=== PATIENT | female | born 1970 | race Caucasian/White ===

== ENCOUNTER 2017-10-02 20:39 | Emergency (ER) | payer OTHER ==
[~2017-10-02] VITALS: Ht 160 cm; Wt 82.1 kg
[~2017-10-02 20:39] MED LIST: EPIPEN 2-P0.3 MG/0.3 IM
[2017-10-02] MEDS ORDERED: PAROXETINE HCL10 MG PO (21:06)
[2017-10-02] MEDS ORDERED: NAPROXEN500 MG PO (21:06)
[2017-10-02] MEDS ORDERED: OXYCODONE HCL5 MG PO (22:06)
[2017-10-04] MEDS ORDERED: NORCO 7.5-3251 EACH PO (16:29)
== END 2017-10-02 22:21 | disposition home or self-care (01) ==
LOC: ED 20:39
DX: S82.62XA Displaced fracture of lateral malleolus of left fibula, initial encounter for closed fracture (principal); Z90.710 Acquired absence of both cervix and uterus; Z90.89 Acquired absence of other organs; Z88.8 Allergy status to other drugs, medicaments and biological substances; Z91.018 Allergy to other foods; Z88.2 Allergy status to sulfonamides; Z88.5 Allergy status to narcotic agent; Z79.899 Other long term (current) drug therapy; W00.0XXA Fall on same level due to ice and snow, initial encounter
CPT/HCPCS: 73610; 99283

== ENCOUNTER 2017-10-10 05:50 | Day surgery (SDC) | payer OTHER ==
[~2017-10-10] VITALS: Ht 160 cm; Wt 82.1 kg
[~2017-10-10 05:50] MED LIST changes: +NAPROXEN500 MG PO; +NORCO 7.5-3251 EACH PO; +OXYCODONE HCL5 MG PO; +PAROXETINE HCL10 MG PO
[2017-10-10] MEDS ORDERED: HYDROCODON-ACE1 EA11 PO (07:54)
--- NOTE | 2017-10-10 08:24 | NUR ---
10/10/17 0824 Judy Bautista 0751 PT ARRIVED IN PACU SLEEPY WITH ORAL AIRWAY IN PLACE. 0752 AIRWAY REMOVED. REPORT FROM ANESTHESIA. 0824 SLEEPY WITH NO C/O'S.
--- NOTE | 2017-10-10 08:57 | NUR ---
PT IS BACK TO DS FROM PACU. PT IS ALSEEP, MOM IS AT THE BEDSIDE. SHE DOES NOT FEEL OR WAKE UP WHILE MYSELF AND SECOND RN PUT HER LEFT FOOT/ANKLE IN BOOT. CALL LIGHT IS WITHIN REACH. WATER AND CRACKERS ON BEDSIDE TABLE. NO OTHER C/O'S AT THIS TIME. WILL REASSESS WITHIN THE HOUR.
--- NOTE | 2017-10-10 09:13 | OR ---
[facility] [address], [place] [address] Signed DATE OF OPERATION: 10/10/2017 SURGEON: Kiara Bonner MD PREOPERATIVE DIAGNOSIS: Left lateral malleolus fracture displaced. POSTOPERATIVE DIAGNOSIS: Left lateral malleolus fracture displaced. PROCEDURE PERFORMED: Left ankle open reduction and internal fixation with IM renee. WELL DRILLER HELPER: KIERSTEN Retana. Enedelia was present in critical for positioning, retraction, and wound closure. ANESTHESIA: General with sciatic block. TOURNIQUET TIME: 26 minutes. IMPLANTS: Arthrex FibuLock 3 x 130 with two 2.7 screws. HISTORY: Bettye is a 46-year-old female who slipped on the ice suffering a fracture of her ankle with tear and instability of the deltoid ligament. Risks and benefits of the operative treatment were discussed with her and she elected to proceed. DESCRIPTION OF PROCEDURE: Once consent was obtained, she was taken to the operating room. After adequate anesthesia, she was placed on the operating table. All downside pressure points were well padded. PARQ conference was obtained and the leg was prepped and draped in standard sterile fashion. She was placed in the proximal leg tourniquet. The leg was exsanguinated using an Esmarch bandage. Tourniquet inflated to 250 mmHg after prepping and draping. The fibula was then identified on the image intensifier. The distal tip of the fibula was then approached through 1 cm incision. Two stab incisions were made at the fracture and a clamp was used to reduce and hold the fracture in position. The Electronically Signed By: KIARA BONNER MD 10/10/17 0913 PATIENT NAME: BETTYE BOWLING OPERATIVE REPORT DATE OF : 66 PHYSICIAN: KIARA BONNER MD REPORT #: [id number] REPORT IS CONFIDENTIAL AND NOT TO BE RELEASED WITHOUT AUTHORIZATION [facility] [address] [place] [id number] Signed initial guidewire was then introduced from the tip of the fibula into the shaft of the fibula. This was over-reamed using the 6 mm drill. This was then exchanged for a longer guidewire and the fibula was reamed to a depth of 140 using 3.2 mm reamer. The renee was then selected and placed in the fibula and advanced until it was well seated. The proximal arms were then deployed. Two distal locking screws, one lateral and one anterior were placed through the separate stab incisions. Excellent fixation was obtained. The introducer was then removed. Final radiograph showed an anatomic reduction and fixation. Screw lengths were appropriate. The wounds were copiously irrigated with antibiotic solution, closed with heather and dressed with Mepilex Ag dressing, gauze and Skip wrap. She tolerated the procedure well and was taken to the recovery room in satisfactory condition. All sponge, needle, and instrument counts were correct. Kiara Bonner MD BA/[place] /[id number] Electronically Signed By: KIARA BONNER MD 01/07/18 913 PATIENT NAME: BETTYE BOWLING OPERATIVE REPORT DATE OF : 66 PHYSICIAN: KIARA BONNER MD REPORT #: [id number] REPORT IS CONFIDENTIAL AND NOT TO BE RELEASED WITHOUT AUTHORIZATION
--- NOTE | 2017-10-10 09:52 | NUR ---
PT IS RESTING COMFORTABLY UPON ENTERING THE ROOM. SENIOR SQL SERVER DBA COMES IN TO CHECK STATUS OF PT'S SPINAL, SHE IS ABLE TO MOVE BOTH LEGS, FUNCTIONAL CONSULTANT HER RIGHT KNEE AND CAN FEEL WHEN YOU SQUEEZ HER TOES. THE BLOCK ON THE LEFT SIDE IS STILL WORKING AT THIS TIME. SHE REPORTS STILL BEING REALLY SLEEPY, GOING TO LET HER REST AT THIS TIME. WILL REASSESS WITHIN THE HOUR.
--- NOTE | 2017-10-10 10:50 | NUR ---
PT IS WAKING UP A LITTLE BIT. SHE REPORTS THAT SHE NEEDS TO PEE, SINCE SHE HAS SOME TINGLING IN THE BOTTOM OF HER LEFT FOOT IT IS RECOMMENDED THAT SHE USE A BEDPAN. SHE IS AGREEABLE TO THIS PLAN. AT FIRST BED EM IS NOT PLACED BACK FAR ENOUGH, A NEW NEREYDA IS GRABBED AND PLACED UNDER PT. SHE REPROTS SHE STILL NEEDS TO URINATE SO THE BED EM IS REAJUSTED AND 550ML IS COLLECTED. SHE IS DENYING ANY PAIN AND NAUSEA. SHE TOLERATES SIPS OF WATER, DENIES BEING HUNGRY. CALL LIGHT WITHIN REACH. WILL REASSESS WITHIN THE HOUR.
--- NOTE | 2017-10-10 11:53 | NUR ---
PT IS AWAKE, MOM IS AT THE BEDSIDE. MOM GAVE PT 2 TABS OF HER NOCRO 7.5/325MG THAT SHE PICKED UP FROM THE PHARMACY. PT REPORTS THAT HER LEFT FOOT IS WAKING UP AND SHE IS STARTING TO FEEL IT. SPINAL HAS RESOLVED COMPLETELY. CALL LIGHT WITHIN REACH. PT IS TOLERATING LIQUIDS AND FOOD. NO OTHER C/O'S AT THIS TIME. DC CRITERIA DISCUSSED WITH THE PT. WILL REASSESS WITHIN THE HOUR.
--- NOTE | 2017-10-10 12:51 | NUR ---
1230: PT IS ASSISTED UP OOB, USING CRUTCHES AND STANDBY ASSIST TO THE BATHROOM. UPON EXITING THE RESTROOM SHE REPORTS THAT SHE IS READY TO GO HOME. PT HAS MEET DISCHARGE CRITERIA AT THIS TIME. DC INSTRUCTIONS ARE GIVEN TO THE PT WITH HER MOM PRESENT. QUESTIONS ARE ASKED AND ANSWERED. PT IS EDUCATED ON HOW BEST TO DRESS HERSELF AND TO PUSH THE CALL LIGHT IF SHE NEEDS HELP.
== END 2017-10-10 12:40 | disposition home or self-care (01) ==
LOC: DS 05:50
PROVIDERS: Specialist
PROC: 0QSJ04Z Reposition Right Fibula with Internal Fixation Device, Open Approach (ICD-10-PCS; principal; 2017-10-10 06:45)
DX: S82.61XA Displaced fracture of lateral malleolus of right fibula, initial encounter for closed fracture (principal); M79.7 Fibromyalgia; Z88.5 Allergy status to narcotic agent; Z88.2 Allergy status to sulfonamides; Z98.890 Other specified postprocedural states; Z79.899 Other long term (current) drug therapy; W00.0XXA Fall on same level due to ice and snow, initial encounter; Y93.89 Activity, other specified
CPT/HCPCS: 01480; 64445; 73600; 76942; C1713; J0690; J0735; J1100; J1885; J2250; J2405; J2704; J2765; J3010; J7120

== ENCOUNTER 2018-03-26 12:06 | Observation (INO) | payer OTHER ==
[~2018-03-26] VITALS: Ht 160 cm; Wt 80.3 kg
[~2018-03-26 12:06] MED LIST changes: +HYDROCODON-ACE1 EA11 PO
--- NOTE | 2018-03-26 13:06 | NUR ---
PT HAS NOT ARRIVED TO MED/SURG BY THIS TIME. THIS RN CHECKED ROOMS AND SPANN. PT NOT FOUND. DAY SURGERY UNIT CALLED. THIS RN SPOKE WITH ASRAHY AND HAMIDA, RNS WHO STATE PT IS ON THEIR UNIT. SARAHY STATES OR CHARGE WILL BE CONSULTED AND MED/SURG WILL BE CALLED AND UPDATED.
--- NOTE | 2018-03-26 13:20 | NUR ---
PT ARRIVED FROM DAY SURGERY. INTAKE DONE. ASSESSMENT DONE. PT REPORTS 6/10 PAIN AND STATES "THIS IS TOTALLY FINE FOR ME. i DON'T NEED MEDICATION." PIV STARTED PER PROTOCOL. PT ORIENTED TO ROOM. LABS DRAWN. FLUIDS STARTED (SEE MAR). BED RAILS UP. CALL LIGHT WITHIN REACH.
--- NOTE | 2018-03-26 15:02 | NUR ---
MED REC COMPLETE
--- NOTE | 2018-03-26 15:23 | NUR ---
PRE OP CHECK LIST AND AFTERNOON ASSESSMENT DUE. THIS RN TO ROOM. PT PLAYING ON PHONE. ASSESSMENT DONE. PRE OP CHECK LIST COMPLETED. CONSENT SIGNED. PT REPORTS 6/10 PAIN THAT "IS JUST THE SAME." PT DOES NOT WANT PAIN MEDICATION AT THIS TIME. PT REMOVES MAKE UP AND JEWLERLY FOR PROCEEDURE. PT BACK TO BED. WARM BLANKETS PROVIDED. CALL LIGTH WITHIN REACH.
--- NOTE | 2018-03-26 16:17 | NUR ---
OR CHARGE CAME TO TAKE PT TO SURGERY. REPORT GIVEN TO ALL JUAREZ.
--- NOTE | 2018-03-26 17:58 | NUR ---
03/26/18 1758 Judy Batuista 1723 PT ARRIVED IN PACU SLEEPY WITH ORAL AND NASAL AIRWAY IN PLACE. 1727 PT SPIT ORAL AIRWAY OUT. CRYING OUT AND MIMICKING SEIZURE LIKE ACTIVITY. PILLOWS ALONG LEFT SIDE OF BODY FOR PT PROTECTION FROM SELF. 1745 ANESTHESIA AWARE OF PT CONDITION WITH NO NEW ORDERS. 1755 PT AWAKE AND C/O L ANKLE PAIN 10. 1757 FENTANYL 25MCG GIVEN IVP. ICE TO L ANKLE.
--- NOTE | 2018-03-26 18:11 | NUR ---
PT HERE FOR SEPTIC LEFT ANKLE. SURGERY TODAY FOR HARDWARE REMOVAL. CULTURES DONE IN SURGERY. ADVANCING DIET. FAMILY AT BEDSIDE. PT USES CALL LIGHT APPROPRIATLY.
--- NOTE | 2018-03-26 18:35 | NUR ---
PT ARRIVED FROM PACU, REPORT TAKEN FROM ALL BURNS. PT REPORTS 9/10 PAIN AND NAUSEA. SEE MAR FOR MEDICATION GIVEN. ASSESSMENT DONE. CMS INTACT. BED RAILS UP. CALL LIGHT WITHIN REACH. MOTHER AT BEDSIDE.
--- NOTE | 2018-03-26 19:10 | NUR ---
PT VOMITING. MD CALLED. ORDER FOR COMPAZINE PLACED. THIS RN BACK TO ROOM WITH MEDICATION. PT SIPPING ON 7-UP AND EATING SALTINE FROM MOM. PT STATES "I FEEL BETTER." COMPAZINE GIVEN. PT RESTING IN BED. BED RAILS UP. CALL LIGHT WITHIN REACH.
--- NOTE | 2018-03-26 19:35 | NUR ---
BEDSIDE REPORT RECEIVED FROM ALL ALFREDO. PT SITTING UP AT SIDE OF BED, VOMITTING. NOTIFIED, ORDER TO CALL ENGINEERING PROGRAM ANALYST FOR ORDERS, ORDERS OBTAINED BY ALL ALFREDO FROM CELESTE BURNS. GARY MEDINA AND ALL CORLEY IN ROOM FOR POST OP VITALS, ASSISTING PT TO BSC W FWW.
--- NOTE | 2018-03-26 20:14 | NUR ---
IN PT ROOM FOR PRN PAIN MEDICATION ADMINISTRATION, PT REPORTS 10/10 PAIN IN LEFT ANKLE. PRN NAUSEA MEDICATION ADMINISTERED. PT AWAKE, ALERT, ORIENTED X 4. NO EMESIS AT THIS TIME. CSM INTACT BLE. ICE IN PLACE. IVF INFUSING WNL, IV SITE FLUSHED WNL. LUNGS CLEAR THROUGHOUT ALL LOBES, CALL LIGHT IN REACH.
--- NOTE | 2018-03-26 20:40 | NUR ---
THIRD SET POST OP VITALS COMPLETE. PT SLEEPING, AWAKENS EASILY. DENIES PAIN AT THIS TIME. VITALS WNL. PT DENIES NAUSEA. IVF INFUSING WNL. LEGS ELEVATED, ICE IN PLACE.
--- NOTE | 2018-03-26 23:22 | NUR ---
CHECKED ON PT, APPEARS TO BE SLEEPING, EYES CLOSED, BREATHING NON-LABORED, SPO2 94% ON ROOM AIR. LIGHTS OFF IN ROOM.
--- NOTE | 2018-03-27 02:26 | NUR ---
PT ASSESSMENT COMPLETE. SBA TO RESTROOM FOR VOID AND BACK TO BED, PT GAIT STEADY. RATES PAIN 7/10 IN LEFT ANKLE, PRN PO NORCO ADMINISTERED. CSM INTACT BUE, BLE. PT DENIES NAUSEA AT THIS TIME, REQUESTING FOOD, GARY FRIAS TO GET PT PROTEIN PACK, FRUIT. ANKLE ELEVATED, ICE IN PLACE. LUNGS CLEAR THROUGHOUT, HR REGULAR. SPO2 WNL, ON CONT. PULSE OX. CALL LIGHT IN REACH. PT GIVEN 7-UP TO DRINK.
--- NOTE | 2018-03-27 03:56 | NUR ---
CHANGED BED LINEN. PATIENT WENT TO THE BATHROOM, BRUSHED TEETH AND BACK IN BED. MADE 2 ICE PACKS. CALL LIGHT IN REACH.
--- NOTE | 2018-03-27 04:50 | NUR ---
CHECKED ON PT, APPEARS TO BE SLEEPING, LYING ON SIDE, BREATHING NON-LABORED, SPO2 96% ON ROOM AIR. IVF INFUSING.
--- NOTE | 2018-03-27 05:13 | NUR ---
PT AMBULATING TO RESTROOM SBA, WEIGHT BEARING ON LEFT ANKLE. DRESSING C/D/I. CSM INTACT. LEG ELEVATED ON PILLOWS, ICE IN PLACE. IVF INFUSING THROUGHOUT SHIFT. SOME EMESIS AT START OF SHIFT. PT TOLERATING REGULAR DIET WELL. PAIN CONTROLLED WITH PO NORCO. CONT. PULSE OX IN PLACE THROUGHOUT NIGHT PER REFINERY OPERATOR COKING, SATURATIONS WNL.
--- NOTE | 2018-03-27 06:42 | NUR ---
CHECKED ON PT, APPEARS TO BE SLEEPING, EYES CLOSED, BREATHING NON LABORED, SPO2 96% ON ROOM AIR. IVF INFUSING.
--- NOTE | 2018-03-27 09:00 | NUR ---
PT SITTIN UP IN BED EATING BREAKFAST AND TALKING TO MOTHER. RATING LEFT ANKLE PAIN 10/10. MEDICATED WITH NORCO AND TORADOL. LEFT ANKLE DRESSING CDI. ALERT AND ORIENTED. IV INFUSING WNL. CALL LIGHT WITHIN REACH.
--- NOTE | 2018-03-27 10:03 | OR ---
[facility] [address], [place] [address] Signed DATE OF OPERATION: 03/26/2018 SURGEON: Kiara Bonner MD PREOPERATIVE DIAGNOSIS: Infected hardware, left ankle. POSTOPERATIVE DIAGNOSIS: Infected hardware, left ankle. PROCEDURE PERFORMED: Removal of hardware and debridement of bone, left ankle. ENTRY LEVEL PROJECT COORDINATOR: Enedelia Acosta PA-C. Enedelia was present in critical positioning, retraction, and wound closure. ANESTHESIA: General. BLOOD LOSS: Minimal. TOURNIQUET TIME: 32 minutes. All hardware was removed from the fibula. BRIEF HISTORY: Bettye is a 47-year-old female, who suffered a fracture on the ice this winter. 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 She underwent open reduction and internal fixation with FibuLock device. She healed uneventfully, although she did have some skin issues at the proximal screw incision. These resolved until this week when she sent me pictures on my cell phone of her ankle, which was reddened and swollen. I had her come in with the intent of removing the hardware this afternoon. Risks, benefits, and alternatives were discussed at length. She elected to proceed. DESCRIPTION OF PROCEDURE: Once consent was obtained, she was sent to the hospital, admitted. No preoperative antibiotics were given until cultures were obtained. Once consent was obtained, she was taken to the operating room. After adequate anesthesia, placed in well-padded proximal Electronically Signed By: KIARA BONNER MD 03/27/18 1003 PATIENT NAME: BETTYE BOWLING OPERATIVE REPORT DATE OF : 66 REPORT #: [id number] PHYSICIAN: KIARA BONNER MD PCP: ELAYNE KOO REPORT IS CONFIDENTIAL AND NOT TO BE RELEASED WITHOUT AUTHORIZATION [facility] [address], [place] [address] Signed thigh tourniquet. The leg was then prepped and draped in a standard sterile fashion, exsanguinated using Esmarch bandage. Tourniquet inflated to 250 mmHg. The screw holes of the screws were approached through two separate stab incisions and the screws removed. The distal end of the FibuLock was then exposed through 1-inch incision and scar tissue was removed. The guidewire was placed in the FibuLock and the long screwdriver was used to withdraw the proximal fins. The insertion device was then placed in the distal end of the FibuLock until it was tight, and using light taps with the mallet we were able to remove it with no difficulty. There was a small fluctuant area just posterior to the proximal incision. This was opened up and white purulent material was expressed. This was cultured and the screw hole was scraped for culture and sent to the lab. All wounds were copiously irrigated. The abscess area was debrided sharply with the knife and rongeur as well as curette. Good bleeding was obtained. All wounds were then copiously irrigated with antibiotic solution, closed with 3-0 nylon, and dressed with Mepilex Ag dressing. Skip wrap and ABD were placed over this. She tolerated the procedure well. All sponge, needle, and instrument counts were correct. Kiara Bonner MD BA/MODL /[id number] Copies: ~ Electronically Signed By: KIARA BONNER MD 03/27/18 1003 PATIENT NAME: BETTYE BOWLING OPERATIVE REPORT DATE OF : 66 REPORT #: [id number] PHYSICIAN: KIARA BONNER MD PCP: ELAYNE KOO REPORT IS CONFIDENTIAL AND NOT TO BE RELEASED WITHOUT AUTHORIZATION
[2018-03-27] MEDS ORDERED: ONDANSETRON4 MG/2 M1 IV (10:26)
[2018-03-27] MEDS ORDERED: HYDROCODON-ACE1 EA11 PO (10:26)
[2018-03-27] MEDS ORDERED: LEVAQUIN750 MG PO (10:27)
[2018-03-27] MEDS ORDERED: NORCO 7.5-3251 EACH PO (10:47)
--- NOTE | 2018-03-27 11:15 | NUR ---
PT AMB TO RESTROOM WITH ASSISTANCE FROM MOTHER, STEADY ON FEET. PT REPORTING 7/10 PAIN IN LEFT ANKLE. MEDICATED PRN MEDS.
[2018-03-27] MEDS ORDERED: ZOFRAN4 MG PO (11:52)
== END 2018-03-27 12:06 | disposition home or self-care (01) ==
LOC: DS 12:06 → MS 12:06 → DS 17:00 → MS 03-27 10:35 → DS 03-27 13:10
PROVIDERS: ADMIT Specialist
PROC: 0QPK04Z Removal of Internal Fixation Device from Left Fibula, Open Approach (ICD-10-PCS; principal; 2018-03-26 17:00)
DX: T84.625A Infection and inflammatory reaction due to internal fixation device of left fibula, initial encounter (principal); T81.4XXA Infection following a procedure, initial encounter; F41.9 Anxiety disorder, unspecified; E66.9 Obesity, unspecified; Z68.31 Body mass index [BMI] 31.0-31.9, adult; L02.416 Cutaneous abscess of left lower limb; Z88.5 Allergy status to narcotic agent; Z88.2 Allergy status to sulfonamides; Z79.1 Long term (current) use of non-steroidal anti-inflammatories (NSAID); Z79.899 Other long term (current) drug therapy
CPT/HCPCS: 01480; 36415; 73600; 80053; 85025; 94762; J0690; J0735; J1100; J1885; J2175; J2250; J2405; J2550; J2704; J2765; J3010; J7120

== ENCOUNTER 2019-02-18 20:13 | Emergency (ER) | payer OTHER ==
[~2019-02-18] VITALS: Ht 160 cm; Wt 77.1 kg
--- OUTSIDE RECORDS SUMMARY | ~2019-02-18 | XMS | Clinical Summary ---
Demographics + + + | Address | [address] [place] [address] | | | [place] [address] | + + + | Home Phone | | + + + | Preferred Language | Unknown | + + + | Marital Status | Single | + + + | Scientologist Affiliation | Unknown | + + + | Race | Unknown | + + + | Ethnic Group | Unknown | + + + Author + + + | Author | [facility] | + + + | Organization | [facility] | + + + | Address | Unknown | + + + | Phone | Unavailable | + + + Support + + +---------+ + | Name | Relationship | Address | Phone | + + +---------+ + | Екатерина Maier | ECON | Unknown | | + + +---------+ + Care Team Providers + +------+ + | Care Truck Driver Instructor Name | Role | Phone | + +------+ + | Akosua Collazo NP | PP | | + +------+ + Allergies + + + + + + | Active Allergy | Reactions | Severity | Noted | Comments | | | | | Date | | + + + + + + | Codeine | Other (See Comments) | Medium | 04/12/20 | unknown | | | | | 17 | | + + + + + + | Sulfa Antibiotics | Other (See Comments) | Medium | 04/12/20 | unknown | | | | | 17 | | + + + + + + Current Medications + +------+-------+---------+------+------+-------+ | Prescription | Sig. | Disp. | Refills | Star | End | Statu | | | | | | t | Date | s | | | | | | Date | | | + +------+-------+---------+------+------+-------+ | EPINEPHrine 0.3 | | | | 06/1 | | Activ | | MG/0.3ML | | | | 4/20 | | e | | auto-injector | | | | 17 | | | + +------+-------+---------+------+------+-------+ Active Problems No known active problems Family History + + +------+ + | Medical History | Relation | Name | Comments | + + +------+ + | Alcohol abuse | Other | | | + + +------+ + | Stroke | Other | | | + + +------+ + + +------+--------+ + | Relation | Name | Status | Comments | + +------+--------+ + | Other | | | | + +------+--------+ + Social History + +-------+ +--------+------+ | Tobacco Use | Types | Packs/Day | Years | Date | | | | | Used | | + +-------+ +--------+------+ | Never Smoker | | | | | + +-------+ +--------+------+ + + +---------+ + | Alcohol Use | Drinks/We | oz/Week | Comments | | | ek | | | + + +---------+ + | Yes | | | | + + +---------+ + + + + | Sex Assigned at | Date Recorded | | | | + + + | Not on file | | + + + Last Filed Vital Signs + + + + | Vital Sign | Reading | Time Taken | + + + + | Blood Pressure | 127/83 | 05/09/2017 8:39 AM PDT | + + + + | Pulse | 60 | 05/09/2017 8:39 AM PDT | + + + + | Temperature | - | - | + + + + | Respiratory Rate | - | - | + + + + | Oxygen Saturation | 100% | 05/09/2017 8:39 AM PDT | + + + + | Inhaled Oxygen | - | - | | Concentration | | | + + + + | Weight | 78 kg (172 lb) | 04/12/2017 8:24 AM PDT | + + + + | Height | 160 cm (5' 3") | 04/12/2017 8:24 AM PDT | + + + + | Body Mass Index | 30.47 | 04/12/2017 8:24 AM PDT | + + + + Plan of Treatment + + + + + | Health Maintenance | Due Date | Last Done | Comments | + + + + + | Vaccine: | | | | | Dtap/Tdap/Td (1 - | 8 | | | | Tdap) | | | | + + + + + | Cervical Cancer | | | | | Screening (Pap) | 9 | | | + + + + + | Breast Cancer | | | | | Screening | 9 | | | | (Mammogram) | | | | + + + + + | Colon Cancer | | | | | Screening | 9 | | | | (Colonoscopy) | | | | + + + + + | Vaccine: Zoster (1 | | | | | of 2) | 9 | | | + + + + + | Vaccine: Influenza | | | | | (Season Ended) | 9 | | | + + + + + Results Not on filefrom Last 3 Months Insurance + +--------+ +------+-------+---------+ | Payer | Benefi | Subscriber | Type | Phone | Address | | | t Plan | ID | | | | | | / | | | | | | | Group | | | | | + +--------+ +------+-------+---------+ | [employer] | ODS | [id number] | | | | | | HEALTH | | | | | | | PLAN | | | | | + +--------+ +------+-------+---------+ + +--------+ +--------+ + + | Guarantor Name | Accoun | Relation to | Date | Phone | Billing Address | | | t Type | Patient | of | | | | | | | | | | + +--------+ +--------+ + + | BETTYE XIONG | Person | 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
--- OUTSIDE RECORDS SUMMARY | ~2019-02-18 | XMS | Clinical Summary ---
Demographics + + + | Address | [address] | | | [place] [address] | + + + | Home Phone | | + + + | Preferred Language | Unknown | + + + | Marital Status | | + + + | Presybeterian Affiliation | Unknown | + + + | Race | White | + + + | Ethnic Group | Not or | + + + Author + + + | Author | [facility] | + + + | Organization | NON REVENUE LOC[facility] | + + + | Address | Unknown | + + + | Phone | Unavailable | + + + Support + + +---------+ + | Name | Relationship | Address | Phone | + + +---------+ + | Edgar Xiong | ECON | Unknown | | + + +---------+ + Care Team Providers + +------+ + | Care Academic Support Assistant Name | Role | Phone | + +------+ + | Devin Cuba MD | PP | | + +------+ + Source Comments YVONNE is fully live on both [facility] and [facility] Allergies + + + + + + | Active Allergy | Reactions | Severity | Noted | Comments | | | | | Date | | + + + + + + | Codeine | Hives, Nausea and | | 07/09/20 | | | | Vomiting | | 13 | | + + + + + + | Kiwi | Airway Constriction | | 07/09/20 | | | | | | 13 | | + + + + + + | [place] Oil | Airway Constriction, | | 07/09/20 | | | | Nausea and Vomiting | | 13 | | + + + + + + | Sulfa (Sulfonamide | Hives | | 07/09/20 | | | Antibiotics) | | | 13 | | + + + + + + Medications + + + +---------+------+------+-------+ | Medication | Sig | Dispensed | Refills | Star | End | Statu | | | | | | t | Date | s | | | | | | Date | | | + + + +---------+------+------+-------+ | MOMETASONE FUROATE | Instill in nose | | 0 | | | Activ | | (NASONEX NASL) | once daily. | | | | | e | + + + +---------+------+------+-------+ | CETIRIZINE | Take by mouth once | | 0 | | | Activ | | HCL/PSEUDOEPHEDRINE | daily. | | | | | e | | (AL-D ORAL) | | | | | | | + + + +---------+------+------+-------+ Active Problems + + + | Problem | Noted Date | + + + | Pelvic pain | 07/10/2013 | + + + | Dyspareunia | 07/10/2013 | + + + Family History + + +------+ + | Medical History | Relation | Name | Comments | + + +------+ + | Cancer | Neg Hx | | | + + +------+ + Social History + +-------+ +--------+------+ | Tobacco Use | Types | Packs/Day | Years | Date | | | | | Used | | + +-------+ +--------+------+ | Never Smoker | | | | | + +-------+ +--------+------+ + + +---------+ + | Alcohol Use | Drinks/Week | oz/Week | Comments | + + +---------+ + | No | | | | + + +---------+ + + + + | Sex Assigned at | Date Recorded | | | | + + + | Not on file | | + + + + + + + | Job Start Date | Occupation | Industry | + + + + | Not on file | Not on file | Not on file | + + + + + + + + | Travel History | Travel Start | Travel End | + + + + + + | No recent travel history available. | + + Last Filed Vital Signs + + + + + | Vital Sign | Reading | Time Taken | Comments | + + + + + | Blood Pressure | 122/78 | 07/09/2013 8:59 AM | | | | | PDT | | + + + + + | Pulse | - | - | | + + + + + | Temperature | - | - | | + + + + + | Respiratory Rate | - | - | | + + + + + | Oxygen Saturation | - | - | | + + + + + | Inhaled Oxygen | - | - | | | Concentration | | | | + + + + + | Weight | 86.2 kg (190 lb) | 07/09/2013 8:59 AM | | | | | PDT | | + + + + + | Height | 162.6 cm (5' 4") | 07/09/2013 8:59 AM | | | | | PDT | | + + + + + | Body Mass Index | 32.61 | 07/09/2013 8:59 AM | | | | | PDT | | + + + + + Plan of Treatment + + + + + | Health Maintenance | Due Date | Last Done | Comments | + + + + + | Influenza (Flu) | | | | | vaccination (Season | 9 | | | | Ended) | | | | + + + + + Results Not on filefrom Last 3 Months Insurance + +--------+ +--------+ + +------+ | Payer | Benefi | Subscriber | Effect | Phone | Address | Type | | | t Plan | ID | dylan | | | | | | / | | Dates | | | | | | Group | | | | | | + +--------+ +--------+ + +------+ | [employer]UE | REGENC | xxxxxxxxxxx | 10/01/19 | [phone] | [address] | PPO | | SHIELD | E BCBS | x | 13-Pre | 8 | [id number] | | | | | | sent | | [place], | | | | | | | | [place] | | | | | | | | [phone] | | + +--------+ +--------+ + +------+ + +--------+ +--------+ + + | Guarantor Name | Accoun | Relation to | Date | Phone | Billing Address | | | t Type | Patient | of | | | | | | | | | | + +--------+ +--------+ + + | Ericka Xiong | Person | Self | [birth year] | | [address] | | | 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
--- OUTSIDE RECORDS SUMMARY | ~2019-02-18 | XMS | Clinical Summary ---
Demographics + + + | Address | [address] [place] [address] | | | [place] [address] | + + + | Home Phone | | + + + | Preferred Language | Unknown | + + + | Marital Status | Single | + + + | Yarsani Affiliation | Unknown | + + + | Race | Unknown | + + + | Ethnic Group | Unknown | + + + Author + + + | Author | [facility] | + + + | Organization | [facility] | + + + | Address | Unknown | + + + | Phone | Unavailable | + + + Support + + +---------+ + | Name | Relationship | Address | Phone | + + +---------+ + | Екатерина Maier | ECON | Unknown | | + + +---------+ + Care Team Providers + +------+ + | Care Director Of Search Engine Optimization Name | Role | Phone | + [...] | [employer] | ODS | [id number] | | | | | | HEALTH [...] | Self | [birth year] | Work: | [id number] | | | fady/[employer] | | 1971 | [phone] | [address] [place] | | | [place] | | | [address] Home: | [phone] | | | | | | | | | | | | | [phone] | | | | | | | [phone] | | + +--------+ +--------+ + +
--- OUTSIDE RECORDS SUMMARY | ~2019-02-18 | XMS | Encounter Summary ---
Demographics + + + | Address | [address] | | | [place] [address] | + + + | Home Phone | | + + + | Preferred Language | Unknown | + + + | Marital Status | | + + + | Moravian Affiliation | Unknown | + + + | Race | White | + + + | Ethnic Group | Not or | + + + Author + + + | Author | [facility] | + + + | Organization | [facility] | + + + | Address | Unknown | + + + | Phone | Unavailable | + + + Support + + +---------+ + | Name | Relationship | Address | Phone | + + +---------+ + | Edgar Xiong | ECON | Unknown | | + + +---------+ + Care Team Providers + +------+ + | Care Tanning Drum Operator Name | Role | Phone | + +------+ + | Devin Cuba MD | PCP | | + +------+ + Reason for Visit + + + | Reason | Comments | + + + | Medical Records | | | Review | | + + + Encounter Details +--------+ + + + + | Date | Type | Department | Care Team | Description | +--------+ + + + + | 05/19/ | Telephone [facility] Ariana Ballesteros | Medical Records | | 2012 | | [facility] | MD Arleen [address] | Review | | | | [place] | | | | | [address] | [place], [place] | | | | | [address] | [address] | | | | | [place], | [phone] | | | | | [place] [address] | | | | | | [phone] | | | +--------+ + + + + Social History + +-------+ +--------+------+ | Tobacco Use | Types | Packs/Day | Years | Date | | | | | Used | | + +-------+ +--------+------+ | Never Assessed | | | | | + +-------+ +--------+------+ + + + | Sex Assigned at [...] recent travel history available. | + + documented as of this encounter Plan of Treatment Not on filedocumented as of this encounter Visit Diagnoses Not on filedocumented in this encounter"
--- OUTSIDE RECORDS SUMMARY | ~2019-02-18 | XMS | Clinical Summary ---
Demographics + + + | Address | [address] | | | [place] [address] | + + + | Home Phone | | + + + | Preferred Language | Unknown | + + + | Marital Status | | + + + | Synagogue Affiliation | Unknown | + + + [...] Team Providers + +------+ + | Care College Tutor Name | Role | Phone | + +------+ + | Devin Cuba MD | PP | | + +------+ + Source Comments YVONNE is fully live on both [facility] Ambulatory and [facility] InPatient.[facility] Allergies + + + + + + [...] + + + + + + | [place] [employer] | Airway Constriction, | | 07/09/20 [...] | x | 13-Pre | 8 | [address] | | | | | | sent | | [place], | | | | | | | | [place] | | | | | | | | [address] | | + +--------+ +--------+ + +------+ + +--------+ +--------+ + + | Guarantor Name | Accoun | Relation to | Date | Phone | Billing Address | | | t Type | Patient | of | | | | | | | | | | + +--------+ +--------+ + + | Ericka Xiong | Person | Self [birth year] | [address] | | | al/Fam | | 1971 | [phone] | [place] | | | lloyd | | | [address] (Home) | [id number] | + +--------+ +--------+ + +
--- OUTSIDE RECORDS SUMMARY | ~2019-02-18 | XMS | Clinical Summary ---
Demographics + + + | Address | [address] | | | [place] [address] | + + + | Home Phone | | + + + | Preferred Language | Unknown | + + + | Marital Status | Unknown | + + + | Scientologist Affiliation | Unknown | + + + | Race | Unknown | + + + | Ethnic Group | Unknown | + + + Author + + + | Author | [facility] | | | and James | + + + | Organization | [facility] | | | and S[facility] | + + + | Address | Unknown | + + + | Phone | Unavailable | + + + Care Team Providers + +------+ + | Care Mill Worker Name | Role | Phone | + +------+ + PP | Unavailable | + +------+ + Allergies Not on File Medications Not on file Active Problems Not on file Social History + +-------+ +--------+------+ | Tobacco [...] recent travel history available. | + + Plan of Treatment + + [...] + Results Not on filefrom Last 3 Months"
--- OUTSIDE RECORDS SUMMARY | ~2019-02-18 | XMS | Encounter Summary ---
Demographics + + + | Address | [address] | | | [place] [address] | + + + | Home Phone | | + + + | Preferred Language | Unknown | + + + | Marital Status | | + + + | Anabaptist Affiliation | Unknown | + + + | Race | White | + + + | Ethnic Group | Not or | + + + Author + + + | Author | [facility] | + + + | Organization | [facility] | + + + | Address | Unknown | + + + | Phone | Unavailable | + + + Support + + +---------+ + | Name | Relationship | Address | Phone | + + +---------+ + | Edgar Xiong | ECON | Unknown | | + + +---------+ + Care Team Providers + +------+ + | Care Psychological Aide Name | Role | Phone | + +------+ + | Devin Cuba MD | PCP | | + +------+ + Reason for Visit + + + | Reason | Comments | + + + | New patient | pelvic pain | | consultation | | + + + Office Visit - E/M Services (Routine) +--------+--------+ + + + + | Status | Reason | Specialty | Diagnoses / | Referred By | Referred To | | | | | Procedures | Contact | Contact | +--------+--------+ + + + + | Closed | | Obstetrics & | Diagnoses | No | [facility] | | | | Gynecology | Urinary | Referring | [facility] [address] | | | | | incontinence | Provider Per | Stevie G[address]mez | | | | | | Patient NO | [address] | | | | | | REFERRING | Melchor [address] | | | | | | PROVIDER PER | Kiko | | | | | | PT | [place], [place] | | | | | | | [address] | | | | | | | Phone: | | | | | | | [phone] | | | | | | | Fax: | | | | | | | [phone] | +--------+--------+ + + + + Encounter Details +--------+---------+ + + + | Date | Type | Department | Care Team | Description | +--------+---------+ + + + | 07/09/ | Office | [facility] | Ariana Ballesteros | Pelvic pain (Primary | | 2012 | Visit | [facility] | MD Arleen [address] | Dx); Urinary | | | | [facility] [address] | incontinence; | | | | [address] | [place], [place] | Dyspareunia | | | | Road [address] | [address] | | | | | [facility] [place], | [phone] | | | | | [place] [address] | | | | | | [phone] | | | +--------+---------+ + + + Social History + +-------+ [...] + + documented as of this encounter Last Filed Vital Signs + + + [...] | | + + + + + documented in this encounter Patient Instructions Patient Instructions Raz Helton Md - 07/09/2013 10:28 AM PDTSurgical Mesh in Recon structive Pelvic Surgery Surgical Mesh and How it Is Used Surgical mesh is a synthetic material that has been used in many types of hernia repairs as well as in surgical treatment of pelvic floor disorders. Surgical mesh is used to treat pel aidan organ prolapse (POP), when the bladder, vagina or uterus, or rectum 'drops', and stress urinary incontinence (NIRU), leakage of urine with coughing, sneezing, or physical exercise d ue to weak ligaments and weak pelvic muscles. Although synthetic mesh may be used to treat e ither condition, there are differences in where and how the mesh is placed for each of these conditions. Those differences may affect the expected outcomes and side effects that might occur.. Mesh and Stress Urinary Incontinence Mesh used to treat stress urinary incontinence is placed under the urethra (the tube that e mpties urine from the bladder). This operation is called a mid-urethral sling. Mid-urethral slings can be placed exiting behind the pubic bone (retropubic approach) or exiting near the thigh (transobturator approach). These procedures are standards of care and an FDA advisory panel held in June 2011 concluded that mid-urethral slings are safe and effective. A n ewer mesh mid-urethral sling called a single incision sling was developed that is placed usi ng only a vaginal incision. The FDA order requesting more information was directed only at t his small subset of sling procedures. Mesh and Pelvic Organ Prolapse Surgical mesh can be placed both abdominally and vaginally to treat POP. Mesh is placed abd ominally to repair POP as part of an operation called a 'sacrocolpopexy.' This operation lif ts the vagina to the tailbone using a piece of mesh and can be performed through an open inc ision in the belly or through multiple tiny incisions using a laparoscopic or robotic techni que. An FDA advisory panel recently concluded that abdominally placed mesh is safe and effec tive and does not require further study. Mesh placed vaginally is done through incisions in the vaginal robles. Mesh placed to treat POP can be placed freely or as part of a 'mesh kit' procedure. Although the routine use of transvaginal mesh for the repair of pelvic organ prolapse is n ot appropriate, there may be particular circumstances when the placement of transvaginal mes h is beneficial and provides the best treatment option for the patient. Placement of transva ginal mesh for pelvic organ prolapse should be done cautiously by experienced surgeons with extensive training in pelvic surgery. Complications with Surgical Mesh Surgical mesh is a medical insurance biller currently regulated by the FDA. It has existed for years as a method of hernia repair and, in 2000, the FDA determined that it was 'substantially equ ivalent' to use for repair of POP. The FDA received reports of complications associated with the placement of mesh through an incision made in the wall of the vagina (transvaginal mesh). Some of these complications ca n have serious consequences. The most frequent complications included erosion through the va andreas, infection, pain, urinary problems and recurrence of the prolapse and/or incontinence. In some cases, erosion of the mesh and scarring of the vagina led to discomfort and pain, in cluding pain during sexual intercourse. Some patients needed additional surgery to remove th e mesh that had eroded into the vagina. Other complications included injuries to nearby orga ns such as the bowel and bladder, or blood vessels. The reports have not been linked to a si ngle brand or model of mesh. As a result, the FDA compiled and evaluated published literature about surgical mesh as we ll as information included in Client Services Representative Reports filed with the FDA by doctors and patie nts. In June 2011, the FDA hosted a panel of experts who represented physicians, resear chers, and patients to collect additional information. The FDA and Future Research On October 04, 2011, the FDA announced that they would be requiring additional research to a ddress specific safety and effectiveness concerns related to transvaginal mesh for POP and s yeimy-incision mini-sling devices for stress urinary incontinence (522 Orders). The research collected from these studies will enable the FDA to better understand the safety and effect iveness profiles of these devices. Updates on the research will be made public on the FDA we bsite as it becomes available. Importantly, no surgical mesh devices for POP or NIRU were rec alled or removed from the market by the FDA. Also, because of their established safety and e fficacy, the FDA has not requested additional research for retropubic or transobturator mid- urethral slings for NIRU or abdominal mesh for POP (sacrocolpopexy). Patient Empowerment There should be discussion between a doctor and a patient that identifies risks, benefits a nd possible adverse outcomes of all available treatment options. It is the responsibility of the doctor and the patient to be informed about non-surgical treatment options, surgical re pairs that use a patient s own tissues, and repairs augmented with a graft placed abdomina lly or vaginally. There are things patients can do to help ensure they have the information they need to trudy e informed choices about their care: Alert a doctor of any past problems healing from mesh surgery or rejecting certain mat erial. Patients treated with mesh who are not experiencing any symptoms or side effects (rec urring prolapse/incontinence, pelvic pain, etc.), do not need to have the mesh removed. Patients considering surgery for NIRU or POP should ask their doctor about all of the o ptions available and the pros and cons of each. If a doctor is recommending transvaginal mesh, ask why he or she is recommending using mesh versus using live tissues for the repair. Visit the patient online community for pelvic floor disorders at [email or web address] to ask questions of expert surgeons, connect with other patients, and find information on pe lvic organ prolapse, stress urinary incontinence, and other pelvic floor disorders. Ask a doctor about his/her experience using mesh and handling complications associated with mesh placement or find a specialist online. Ask a doctor what to expect after surgery, what side effects to look out for, and if t here are any restrictions after surgery. Report any problems related to mesh to the FDA s [employer] Adverse Reporting program. Levator Myalgia The muscles along the base of the pelvis are called the levators. They are two large 'sling -like' muscles that suspend from the pubic bone in the front to the tail bone in the back. T hey hold everything up that is contained in the pelvic area your bladder, bowels, and re ctum. Sometimes these muscles will go into a spasm (like a 'charley horse') and cause pain. This is a condition known as levator myalgia. Women often describe this pain as a heavy pres sure feeling, almost as though something might 'fall out.' The spasm can sometimes create a sharp stabbing pain in the vagina, low back pain, as well as pain passing bowel movements and/or having sex. This pain tends to get worse with prolon ged sitting or standing, and may increase as the day wears on. Spasm of the levator muscles may also cause bladder symptoms such as urgency and frequency to urinate, as well as bladder pain. In some women, this pain may prevent normal bladder e mptying. Treatment Physical Therapy- Many physical therapists have expertise in working with this muscle group . Pelvic floor physical therapy is typically done through the vagina, like a gynecologic exa mination. Your physical therapist will work with you in performing techniques for relaxation of the pelvic floor muscles as well as gentle massage to release spasm in the muscles. Relaxation- Apply a heating pad to your low back may be helpful when feeling pain. Soaking in a warm bath may also help with relaxation and pain. Medications- Your doctor may prescribe some vaginal medications which help in muscle relax ation prior to physical therapy. Using medications such as Tylenol and Ibuprofen may also he lp with pain. Associated Disorders Low Back Pain Often women with levator myalgia have low back pain. This is because the muscles of the back are connected to the muscles in the pelvic floor. Physical therapy for the pelvic floor often helps with low back pain. Knee, Leg, or Hip Pain Other muscle injuries can contribute to pelvic floor pain. Oft en joint replacement surgery, sprains or strains of joints like the knee, hip, or ankle can cause the muscles of the pelvic floor to become unbalanced, which can often make pain worse. Treating both conditions can involve changing exercise habits or activities or seeing a sp orts medicine/ access specialist. 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 In certain cases we will recommend a electrostatic paint operator to help with your care. documented in this encounter Progress Notes Ariana Ballesteros MD - 07/10/2013 6:14 PM PDTI was present with Dr. Helton during the entire history, exam and procedures performed. I discussed the case with Dr. Dallas gomez and agree with the findings and plan as documented in her note. Tamara Michaud MA - 07/09/2013 12:04 PM PDTPatient was catheterized by Dr. Helton. UA was performed o n urine specimen. Raz Valero Md - 07/09/2013 9:17 AM PDTNEW UROGYNECOLOGY VISIT 07/09/2013 Chief Complaint: concern for Mesh complications HPI: Ericka Xiong is a 42 y.o. with a complicated history of endometriosis and pelvic organ prolapse, s/p multiple pelvic surgeries by Dr. Mathias in [place], [place] as follows (operative reports reviewed): 1. 1996: Laparoscopic excision of endometriosis including resection of uterosacral ligament s for endometriosis. Uterovaginal prolapse mentioned as a preoperative diagnosis at that [facility]. 2. 2001: Laparoscopic assisted vaginal hysterectomy with anterior and posterior vaginal rep air and posterior colporrhaphy. Laparoscopic peritoneal biopsies. 3. 2002: Anterior and posterior colporrhaphy, perineorrhaphy, sacrospinous ligament vaginal vault suspension for recurrent vaginal prolapse and enterocele. 4. 2006: Laparoscopic sacral colpoperineopexy with Gynecare mesh, laparoscopic paravaginal repair, repair of incidental cystotomy, Diablo sling, cystoscopy, suprapubic catheter place ment by Dr. Bronson and Dr. Mathias. Main complaint today is a sensation of abdominal "raking" sensation in her abdomen. History of chronic pain from prior endometriosis. This new pain started 1 year ago. Feels it 3x/wee k, intermittent throughout the day. Cramping or worse abdominal sensation going from sitting to standing. Pain worse with intercourse, with vaginal spasms. Pain improves spontaneously. She has previously tried Lyrica for a diagnosis of fibromyalgia, though this made her feel loopy. Denies feeling of bulge, but does feel sensation of "burning" pelvic pressure. Reports vagi nal discharge 1x/month, foul smelling, resolves with dietary changes. Looks like old blood, or brownish, cloudy. Not sure if this is coming from urethra or vagina. Also reports problems with urination. Feels like she "passes tissue", "like wet tissue iveth r" when she urinates for the last year. No leaking with cough/sneeze. Denies urgency/frequen cy. States that she will randomly "shoot" urine during the day without preceding urge. Feels like this is a "muscle problem" worse with standing. Her obstetric history is notable for urinary obstruction and bladder overdistension in her second , for which she had to self-cath for 1-2 months. No problems with constipation, diarrhea, or fecal incontinence. A 10-point review of systems was reviewed on the patient intake questionnaire (scanned into [employer]) and with the patient. The summary is reported below, and is negative unless otherwis e noted. REVIEW OF SYSTEMS GENERAL: Decreased Energy ENT: Seasonal allergies EYES: Negative MUSCULOSKELETAL: Negative GI: Negative CV: Negative RESP: Negative PSYCH: Negative ENDOCRINE: Negative HEMATOLOGIC: Negative In addition, the past medical history, surgical history, family history, social history, an d current medications were reviewed on the patient intake questionnaire provided at today s visit to be found in the scanned documents in [employer]. They have also been entered into rele vant morrow of the [employer] database. PHYSICAL EXAM BP 122/78 | Ht 1.626 m (5' 4") | Wt 86.183 kg (190 lb) | BMI 32.6 kg/(m^2) GENERAL: Healthy Appearing, No acute distress RESPIRATORY: Breathing without difficulty CARDIOVASCULAR: No pedal edema ABDOMEN: No HSM, mass, or hernias No rebound or guarding Obese Well-healed laparoscopic incisions SKIN: R labial 4mm tense pustule NEUROLOGIC GAIT: Normal ORIENTATION: Oriented to time, place, and person AFFECT: Normal GENERAL PELVIC EXAM EXTERNAL GENITALIA: Normal External Genitalia Normal Estrogen Effect URETHRA: Normal BLADDER: Non tender to palpation BLADDER NECK MOBILITY: Visibly slightly mobile VAGINA Mildly TTP at apex, no suture or mesh erosion. normal diameter no suture or mesh erosion seen or palpated normal discharge ANTERIOR VAGINAL RUGAE Normal POSTERIOR VAGINAL RUGAE Normal CERVIX Surgically absent UTERUS Surgically absent ADNEXA Not palpable, normal, no mass present SUPINE PELVIC ORGAN PROLAPSE QUANTIFICATION (POPQ) TEST Aa: -1 Ba: -1 C: -7 gh: 3.5 pb: 4 tvl: 8 Ap: -2 Bp: -2 ICS POPQ Stage of Prolapse 2 Character of Anterior Vaginal Defect Apical Anterior Vaginal Wall Rugae Normal Character of Posterior Vaginal Defect None Posterior Vaginal Wall Rugae Normal The above prolapse grid can be interpreted as the following: While lying supine, her genit al hiatus (gh) is 3.5 cm wide and her perineal body (pb) is 4 cm during valsalva. Her anteri or vaginal wall (Ba) descends -1 cm from the introitus (negative numbers inside the introit us, positive numbers outside), her posterior vaginal wall (Bp) descends -2 cm from the intro itus. Her cervix (c) or vaginal cuff (if posthysterectomy) descends -7 cm from the introitus . PELVIC FLOOR MUSCLE TESTS The levator muscles were also assessed. By palpating the levator ani muscles transvaginally while contracted, the following was noted: TEST: PELVIC FLOOR COORDINATION: Performs Correctly Symmetric TEST: PELVIC FLOOR DISPLACEMENT ABILITY: 2 (Min = 1; Max = 4) TEST: PELVIC FLOOR PRESSURE CREATION: 3 (Min = 1; Max = 4) TEST: DURATION OF PELVIC FLOOR CONTRACTION (SCALE): 4 (Min = 1; Max = 4) TOTAL PELVIC FLOOR STRENGTH/ABILITY SCORE: 9 (Min = 3; Max = 12) TEST: RIGHT PELVIC FLOOR MUSCLE TENDERNESS?: Moderate TEST: LEFT PELVIC FLOOR MUSCLE TENDERNESS?: Moderate FURTHER PELVIC FLOOR FINDINGS: Obturator internus worse than levator pain BLADDER FUNCTION EVALUATION TESTS TEST: POST VOID RESIDUALUsing an antibiotic solution, the external urethral meatus was elisa nsed. A sterile flexible female urethral catheter was used to drain the bladder of all remai jason urine (following a normal void). We used this specimen to obtain a urinalysis and cult ure if needed. The post void residual was determined to be: 100ml. ASSESSMENT SYMPTOMS DISCUSSED Abdominal Pain Pelvic Pain Dyspareunia PHYSICAL FINDINGS Levator Myalgia Excellent vaginal support with supple vaginal tissue DATA/ LAB TESTS REVIEWED/ORDERED Previous Records Reviewed & Scanned Post Void Residual Urinalysis POPQ Levator Muscle Function (Km) Levator Myalgia Assessment 42 y.o. with a complicated history of endometriosis and pelvic organ prolapse, s/p mul tiple pelvic surgeries, who presents today for evaluation of pelvic pain. There is no eviden ce of mesh erosion. Normal vaginal mucosa and discharge. No recurrent prolapse. RECOMMENDATIONS Levator myalgia:Long discussion with patient regarding etiology of pain. Recommend pelvic p hysical therapy for levator myalgia, obturator internus pain, and anterior abdominal wall pa in after surgeries and history of endometriosis. - Referral placed to [facility] Liriano in [facility] if symptoms persist or worsen after physical therapy Patient seen and examined with Dr. Ballesteros, who agrees. Raz Helton MD Forest Technician Resident PGY-3 Pager [phone] documented in t his encounter Plan of Treatment Not on filedocumented as of this encounter Procedures + +--------+ + + + | Procedure Name | Priori | Date/Time | Associated Diagnosis | Comments | | | ty | | | | + +--------+ + + + | UA DIPSTICK 10 DIP | Routin | 07/09/2013 | Urinary | Results for this | | W/O MICRO | e | 10:42 AM | incontinence | procedure are in the | | (AUTOMATED), POC | | PDT | | results section. | + +--------+ + + + | NM | Routin | 07/09/2013 | Urinary | | | INSERT,NON-INDWELLIN | e | 10:16 AM | incontinence | | | G BLADDER CATHETER | | PDT | | | + +--------+ + + + documented in this encounter Results UA 10 DIP, POC (07/09/2013 10:42 AM PDT) + + + + + + | Component | Value | Ref Range | Performed | Pathologist | | | | | At | Signature | + + + + + + | COLOR (UA | Light yellow | | [facility] - | | | DIP), POC | | | [facility] | | | | | | [facility] | | | | | | OF CARE | | | | | | TESTS | | + + + + + + | APPEARANCE | Clear | | [facility] - | | | (UA DIP), | | | [facility] | | | POC | | | [facility] | | | | | | [facility] CARE | | | | | | TESTS | | + + + + + + | LEUKOCYTES | Negative | Negative | [facility] - | | | (UA DIP), | | | [facility] | | | POC | | | [facility] | | | | | | OF CARE | | | | | | TESTS | | + + + + + + | NITRITES | Negative | Negative | [facility] - | | | (UA DIP), | | | [facility] | | | POC | | | [facility] | | | | | | OF CARE | | | | | | TESTS | | + + + + + + | UROBILINOGE | 0.2 | 0.2 - 1.0 | [facility] - | | | N (UA DIP), | | E.U./dL | [facility] | | | POC | | | [facility] | | | | | | OF CARE | | | | | | TESTS | | + + + + + + | PROTEIN (UA | Negative | Neg - Trace | [facility] - | | | DIP), POC | | mg/dL | [facility] | | | | | | [facility] | | | | | | OF CARE | | | | | | TESTS | | + + + + + + | PH (UA | 7.0 | 5.0 - 8.0 | [facility] - | | | DIP), POC | | | [facility] | | | | | | [facility] | | | | | | OF CARE | | | | | | TESTS | | + + + + + + | BLOOD (UA | Trace-intact (A) | Negative | [facility] - | | | DIP), POC | | | [facility] | | | | | | [facility] | | | | | | OF CARE | | | | | | TESTS | | + + + + + + | SPECIFIC | 1.010 | 1.005 - 1.030 | [facility] - | | | GRAVITY (UA | | | [facility] | | | DIP), POC | | | [facility] | | | | | | OF CARE | | | | | | TESTS | | + + + + + + | KETONES (UA | Negative | Negative mg/dL | [facility] - | | | DIP), POC | | | [facility] | | | | | | [facility] | | | | | | OF CARE | | | | | | TESTS | | + + + + + + | BILIRUBIN | Negative | Negative | [facility] - | | | (UA DIP), | | | [facility] | | | POC | | | [facility] | | | | | | OF CARE | | | | | | TESTS | | + + + + + + | GLUCOSE (UA | Negative | Negative - 100 | [facility] - | | | DIP), POC | | mg/dL | [facility] | | | | | | [facility] | | | | | | OF CARE | | | | | | TESTS | | + + + + + + + + | Specimen | + + | Urine - Urine | + + + + + + + | Performing | Address | City/State/Zipcode | Phone Number | | Organization | | | | + + + + + | [facility] | [address] | [place], [place] | | | [facility] | [address] | [address] | | | TESTS | | | | + + + + + documented in this encounter Visit Diagnoses + + | Diagnosis | + + | Pelvic pain - Primary Unspecified symptom associated with female genital organs | + + | Urinary incontinence Unspecified urinary incontinence | + + | Dyspareunia | + + documented in this encounter
--- OUTSIDE RECORDS SUMMARY | ~2019-02-18 | XMS | Encounter Summary ---
Demographics + + + | Address | [address] | | | [place] [address] | + + + | Home Phone | | + + + | Preferred Language | Unknown | + + + | Marital Status | | + + + | Mandaen Affiliation | Unknown | + + + | Race | White | + + + | Ethnic Group | Not or | + + + Author + + + | Author | [facility] | + + + | Organization | [facility] | + + + | Address | Unknown | + + + | Phone | Unavailable | + + + Support + + +---------+ + | Name | Relationship | Address | Phone | + + +---------+ + | Edgar Xiong | ECON | Unknown | | + + +---------+ + Care Team Providers + +------+ + | Care Wet Suit Gluer Name | Role | Phone | + +------+ + | Devin Cuba MD | PCP | | + +------+ + Encounter Details +--------+ + + + + | Date | Type | Department | Care Team | Description | +--------+ + + + + | 08/07/ | Document-Sc | Health Information | Unknown . | | | 2017 | anned | Services [address] | | | | | | [address] | | | | | | Road Mailcode: | | | | | | [address] | | | | | | [facility] [place] | | | | | | [place], [place] | | | | | | [address] | | | | | | [phone] | | | +--------+ + + + [...]
--- OUTSIDE RECORDS SUMMARY | ~2019-02-18 | XMS | Encounter Summary ---
Demographics + + + | Address | [address] | | | [place] [address] | + + + | Home Phone | | + + + | Preferred Language | Unknown | + + + | Marital Status | | + + + | Advent Affiliation | Unknown | + + + | Race | White | + + + | Ethnic Group | Not or | + + + Author + + + | Author | [facility] | + + + | Organization | [facility] | + + + | Address | Unknown | + + + | Phone | Unavailable | + + + Support + + +---------+ + | Name | Relationship | Address | Phone | + + +---------+ + | Edgar Xiong | ECON | Unknown | | + + +---------+ + Care Team Providers + +------+ + | Care Wool And Pelt Grader Name | Role | Phone | + [...] Mailcode: | | | | | | [address] | | | | | | [facility] [place] | | | [place], [place] | | | | | | [address] | | | | | | [phone] | | | +--------+ + + + [...]
--- OUTSIDE RECORDS SUMMARY | ~2019-02-18 | XMS | Encounter Summary ---
Demographics + + + | Address | [address] | | | [place] [address] | + + + | Home Phone | | + + + | Preferred Language | Unknown | + + + | Marital Status | | + + + | Quaker Affiliation | Unknown | + + + | Race | White | + + + | Ethnic Group | Not or | + + + Author + + + | Author | [facility] | + + + | Organization | [facility] | + + + | Address | Unknown | + + + | Phone | Unavailable | + + + Support + + +---------+ + | Name | Relationship | Address | Phone | + + +---------+ + | Edgar Xiong | ECON | Unknown | | + + +---------+ + Care Team Providers + +------+ + | Care Sewage Treatment Plant Operator Name | Role | Phone | + +------+ + | Devin Cuba MD | PCP | | + +------+ + Reason for Visit + + + | Reason | Comments | + + + | Patient referral | Dr. Ballesteros | + + + Encounter Details +--------+ + + + + | Date | Type | Department | Care Team | Description | +--------+ + + + + | 07/14/ | [facility] Ariana Ballesteros | Patient referral | | 2012 | | [facility] | MD Arleen [address] | (Dr. Ballesteros) | | | | [place] | [facility] | | | | | [facility] | [place], [place] | | | | | [address] | [address] | | | | | [place], | [phone] | | | | | [place] [address] | | | | | | [phone] | | | +--------+ + + + [...]
--- OUTSIDE RECORDS SUMMARY | ~2019-02-18 | XMS | Encounter Summary ---
Demographics + + + | Address | [address] | | | [place] [address] | + + + | Home Phone | | + + + | Preferred Language | Unknown | + + + | Marital Status | | + + + | Baptism Affiliation | Unknown | + + + | Race | White | + + + | Ethnic Group | Not or | + + + Author + + + | Author | [facility] | + + + | Organization | [facility] | + + + | Address | Unknown | + + + | Phone | Unavailable | + + + Support + + +---------+ + | Name | Relationship | Address | Phone | + + +---------+ + | Edgar Xiong | ECON | Unknown | | + + +---------+ + Care Team Providers + +------+ + | Care Brooch And Bracelet Maker Name | Role | Phone | + +------+ + | Devin Cuba MD | PCP | | + +------+ + Encounter Details +--------+ + + + + | Date | Type | Department | Care Team | Description | +--------+ + + + + | 07/09/ | Hospital | [facility] | | | | 2012 | Encounter | Center at [facility] [address] | | | | | | [address] | | | | | | [facility] | | | | | | [address] | | | | | | [place], [place] | | | | | | [address] | | | | | | [phone] | | | +--------+ + + + [...] + + documented as of this encounter Medications at Time of Discharge + + + +---------+--------+ + | Medication | Sig | Dispensed | Refills | Start | End Date | | | | | | Date | | + + + +---------+--------+ + | CETIRIZINE | Take by mouth once | | 0 | | | | HCL/PSEUDOEPHEDRINE | daily. | | | | | | (ZYRTEC-D ORAL) | | | | | | + + + +---------+--------+ + | MOMETASONE FUROATE | Instill in nose | | 0 | | | | (NASONEX NASL) | once daily. | | | | | + + + +---------+--------+ + documented as of this encounter Plan of Treatment Not on filedocumented as of this encounter Procedures + +--------+ + + + | Procedure Name | Priori | Date/Time | Associated Diagnosis | Comments | | | ty | | | | + +--------+ + + + | MA SONA SCREEN BILAT | Routin | 07/09/2013 | | Results for this | | W/CAD | e | 11:36 AM | | procedure are in the | | | | PDT | | results section. | + +--------+ + + + documented in this encounter Results MA SONA SCREEN BILAT W/CAD (07/09/2013 11:36 AM PDT) + + + + + + | Component | Value | Ref Range | Performed | Pathologist | | | | | At | Signature | + + + + + + | MA SONA | Baseline | | | | | SCREEN | mammogram.Reason for | | | | | BILAT W/CAD | exam: | | | | | | screening (asymptomat | | | | | | ic). MA SONA SCREEN | | | | | | BILAT W/CAD: July 09 | | | | | | 2012 - Accession | | | | | | #:[id number] CC | | | | | | and MLO view(s) were | | | | | | taken.No prior studies | | | | | | available for | | | | | | comparison.The breast | | | | | | tissue is | | | | | | heterogeneously | | | | | | dense. This may lower | | | | | | thesensitivity of | | | | | | mammography. Baseline | | | | | | study. No | | | | | | suspiciouscalcifications | | | | | | , masses, or | | | | | | architectural distortion | | | | | | present. | | | | | | 3Dtomosynthesis | | | | | | mammography was | | | | | | performed as part of | | | | | | this exam. The images | | | | | | were obtained using full | | | | | | field digital | | | | | | mammography onthe | | | | | | dedicated [employer] System | | | | | | with R2 CAD. Performed | | | | | | at [facility] and | | | | | | [facility]. | | | | | | ASSESSMENT: Negative - | | | | | | Category 1 | | | | | | RECOMMENDATION:Routine | | | | | | screening mammogram in 1 | | | | | | year. Attending | | | | | | Radiologists: KELLIE MORRIS, | | | | | | MDAuthor: Marcos Infante, | | | | | | MRadha I have personally | | | | | | viewed this | | | | | | procedure/exam, reviewed | | | | | | this report, and | | | | | | madechanges to it where | | | | | | appropriate. | | | | | | Final/Electronically | | | | | | signed / KELLIE MORRIS | | | | | | 07/09/2013 14:46 PM | | | | + + + + + + + + | Specimen | + + | | + + + +---------+ + + | Performing | Address | City/State/Zipcode | Phone Number | | Organization | | | | + +---------+ + + | [facility] DEPARTMENT OF | | | | | RADIOLOGY | | | | + +---------+ + + documented in this encounter Visit Diagnoses Not on filedocumented in this encounter"
--- OUTSIDE RECORDS SUMMARY | ~2019-02-18 | XMS | Encounter Summary ---
Demographics + + + | Address | [address] | | | [place] [address] | + + + | Home Phone | | + + + | Preferred Language | Unknown | + + + | Marital Status | | + + + | Buddhist Affiliation | Unknown | + + + | Race | White | + + + | Ethnic Group | Not or | + + + Author + + + | Author | [facility] | + + + | Organization | [facility] | + + + | Address | Unknown | + + + | Phone | Unavailable | + + + Support + + +---------+ + | Name | Relationship | Address | Phone | + + +---------+ + | Edgar Xiong | ECON | Unknown | | + + +---------+ + Care Team Providers + +------+ + | Care Business Objects Name | Role | Phone | + +------+ + | Devin Cuba MD | PCP | | + +------+ + Encounter Details +--------+ + + + + | Date | Type | Department | Care Team | Description | +--------+ + + + + | 07/09/ | Hospital | [facility] Imaging | | | | 2012 | Encounter | Center at [facility] [address] | | | | | | [address] | | | | | | [facility] [address] | | | | | | [address] | | | | | | [place], [place] | | | | | | [address] | | | | | | [phone] | | | +--------+ + + + [...] Accession | | | | | | #:[id number] CC | | | | | | [...] | | | | | | dedicated [employer] System | | | | | | with R2 CAD. Performed | | | | | | at [facility] and | | | | | | [facility]. | | | | | [...] | | + +---------+ + + | [facility] DEPARTMENT OF | | | | | RADIOLOGY | | | | + +---------+ + + documented in this encounter Visit Diagnoses Not on filedocumented in this encounter"
--- OUTSIDE RECORDS SUMMARY | ~2019-02-18 | XMS | Encounter Summary ---
Demographics + + + | Address | [address] | | | [place] [address] | + + + | Home Phone | | + + + | Preferred Language | Unknown | + + + | Marital Status | | + + + | Synagogue Affiliation | Unknown | + + + | Race | White | + + + | Ethnic Group | Not or | + + + Author + + + | Author | [facility] | + + + | Organization | [facility] | + + + | Address | Unknown | + + + | Phone | Unavailable | + + + Support + + +---------+ + | Name | Relationship | Address | Phone | + + +---------+ + | Edgar Xiong | ECON | Unknown | | + + +---------+ + Care Team Providers + +------+ + | Care Bed And Breakfast Operator Name | Role | Phone | [...] Patient referral | | 2012 | | [facility] | MD Arleen [address] | (Dr. Ballesteros) | | | | [address] | [facility] | | | | | [facility] | [place], [place] | | | | | [address] | [address] | | | | | [place], | [phone] | | | | | [place] [address] | | | | | | [phone] | | | +--------+ + + + [...]
--- OUTSIDE RECORDS SUMMARY | ~2019-02-18 | XMS | Encounter Summary ---
Demographics + + + | Address | [address] | | | [place] [address] | + + + | Home Phone | | + + + | Preferred Language | Unknown | + + + | Marital Status | | + + + | Taoist Affiliation | Unknown | + + + | Race | White | + + + | Ethnic Group | Not or | + + + Author + + + | Author | [facility] | + + + | Organization | [facility] | + + + | Address | Unknown | + + + | Phone | Unavailable | + + + Support + + +---------+ + | Name | Relationship | Address | Phone | + + +---------+ + | Edgar Xiong | ECON | Unknown | | + + +---------+ + Care Team Providers + +------+ + | Care Sleeping Bag Filler Name | Role | Phone | + +------+ + | Devin Cbua MD | PCP | | + +------+ [...] | | | | | PT | [place], [place] | | | | | | | [address] | | | | | | | Phone: | | | | | | | [phone] | | | | | | | Fax: | | | | | | | [phone] | +--------+--------+ + + + + Encounter Details +--------+---------+ + + + | Date | Type | Department | Care Team | Description | +--------+---------+ + + + | 07/09/ | Office | [facility] | Ariana Ballesteros | Pelvic pain (Primary | | 2012 | Visit | [facility] | MD [address] | Dx); Urinary | | | | [facility] | [address] | incontinence; | | | | [address] | [place], [place] | Dyspareunia | | | | [address] | [address] | | | | | [facility] [place], | [phone] | | | | | [place] [address] | | | | | | [phone] | | | +--------+---------+ + + + [...] with Surgical Mesh Surgical mesh is a territory sales manager medical currently regulated by the FDA. It has [...] as we ll as information included in Earth Moving Technician Reports filed with the FDA by doctors [...] related to mesh to the FDA s [employer] Adverse Reporting program. Levator Myalgia The muscles [...] activities or seeing a sp orts medicine/ technical maintenance specialist. 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 In certain cases we will recommend a acid painter to help with your care. documented in [...] multiple pelvic surgeries by Dr. Mathias in [place], [place] as follows (operative reports reviewed): 1. 1996: Laparoscopic excision of endometriosis including resection of uterosacral ligament s for endometriosis. Uterovaginal prolapse mentioned as a preoperative diagnosis at that [facility]. 2. 2001: Laparoscopic assisted vaginal hysterectomy with anterior and posterior vaginal rep air and posterior colporrhaphy. Laparoscopic peritoneal biopsies. 3. 2002: Anterior and posterior colporrhaphy, perineorrhaphy, sacrospinous ligament vaginal vault suspension for recurrent vaginal prolapse and enterocele. 4. 2006: Laparoscopic sacral colpoperineopexy with Gynecare mesh, laparoscopic paravaginal repair, repair of incidental cystotomy, [place] sling, cystoscopy, suprapubic catheter place ment by [...] on the patient intake questionnaire (scanned into [employer]) and with the patient. The summary is [...] be found in the scanned documents in [employer]. They have also been entered into rele vant morrow of the [employer] database. PHYSICAL EXAM BP 122/78 | Ht [...] - Referral placed to Magaly Liriano in [facility] if symptoms persist or worsen after physical therapy Patient seen and examined with Dr. Ballesteros, who agrees. Raz Helton MD Bill Poster Installer Resident PGY-3 Pager [phone] documented in t his encounter Plan of [...] | + +--------+ + + + | [place] | Routin | 07/09/2013 | Urinary | [...] [place] | [address] | [place], [place] | | | [facility] | [address] | [address] | | | TESTS | | | [...]
--- OUTSIDE RECORDS SUMMARY | ~2019-02-18 | XMS | Encounter Summary ---
Demographics + + + | Address | [address] | | | [place] [address] | + + + | Home Phone | | + + + | Preferred Language | Unknown | + + + | Marital Status | | + + + | Church Affiliation | Unknown | + + + | Race | White | + + + | Ethnic Group | Not or | + + + Author + + + | Author | [facility] | + + + | Organization | [facility] | + + + | Address | Unknown | + + + | Phone | Unavailable | + + + Support + + +---------+ + | Name | Relationship | Address | Phone | + + +---------+ + | Edgar Xiong | ECON | Unknown | | + + +---------+ + Care Team Providers + +------+ + | Care Metal Tank Erector Name | Role | Phone | + [...] Medical Records | | 2012 | | [facility] | MD Arleen [address] | Review | | | | [address] | [address] | | | | | [address] | [place], [place] | | | | | [address] | [address] | | | | | [place], | [phone] | | | | | [place] [address] | | | | | | [phone] | | | +--------+ + + + [...]
--- OUTSIDE RECORDS SUMMARY | ~2019-02-18 | XMS | Clinical Summary ---
Demographics + + + | Address | [address] | | | [place] [address] | + + + | Home Phone | | + + + | Preferred Language | Unknown | + + + | Marital Status | Unknown | + + + | Roman Catholic Affiliation | Unknown | + + + | Race | Unknown | + + + | Ethnic Group | Unknown | + + + Author + + + | Author | [facility] | | | and James | + + + | Organization | [facility] | | | and Siddharthana | + + + | Address | Unknown | + + + | Phone | Unavailable | + + + Care Team Providers + +------+ + | Care Carrot Buncher Name | Role | Phone | + [...]
[~2019-02-18 20:13] MED LIST changes: +LEVAQUIN750 MG PO; +ONDANSETRON4 MG/2 M1 IV; +ZOFRAN4 MG PO
[2019-02-18] MEDS ORDERED: ZYRTEC10 M3 PO (20:27)
[2019-02-18] MEDS ORDERED: EPIPEN 2-P0.3 MG/0.3 IM (22:29)
== END 2019-02-18 22:55 | disposition home or self-care (01) ==
LOC: ED 20:13
DX: T78.1XXA Other adverse food reactions, not elsewhere classified, initial encounter (principal); R07.9 Chest pain, unspecified; R07.0 Pain in throat; Z90.710 Acquired absence of both cervix and uterus; Z91.010 Allergy to peanuts
CPT/HCPCS: 96361; 96374; 99283-25; J0171; J1200; J7030

== ENCOUNTER 2020-10-12 17:08 | Emergency (ER) | payer OTHER ==
[~2020-10-12] VITALS: Ht 160 cm; Wt 77.1 kg
[~2020-10-12 17:08] MED LIST changes: +DOXYCYCLINE HY100 MG PO; +SINGULAIR10 MG PO; +ZYRTEC10 M3 PO
[2020-10-12] MEDS ORDERED: ESTRADIOL1 EAC6 TD (17:25)
[2020-10-12] MEDS ORDERED: VENTOLIN HFA18 GM INH (17:25)
== END 2020-10-12 20:24 | disposition home or self-care (01) ==
LOC: ED 17:08
DX: U07.1 COVID-19 (principal); Z88.2 Allergy status to sulfonamides; Z88.5 Allergy status to narcotic agent; Z91.018 Allergy to other foods; Z79.899 Other long term (current) drug therapy
CPT/HCPCS: 80053; 85025; 96374; 99283-25; J1885; J7030

== ENCOUNTER 2021-01-02 00:31 | Emergency (ER) | payer OTHER ==
[~2021-01-02] VITALS: Ht 160 cm; Wt 77.1 kg
[~2021-01-02 00:31] MED LIST changes: +ESTRADIOL1 EAC6 TD; +VENTOLIN HFA18 GM INH
[2021-01-02] MEDS ORDERED: EPIPEN 2-P0.3 MG/0.3 IM (05:01)
[2021-01-02] MEDS ORDERED: PREDNISONE50 MG PO (05:01)
[2021-01-02] MEDS ORDERED: PEPCID20 MG PO (05:01)
--- NOTE | 2021-01-02 13:49 | EKG ---
[facility] [address] [place], [place] [address] Signed Normal sinus rhythm Normal ECG When compared with ECG of 04-JUL-2019 16:01, Nonspecific T wave abnormality no longer evident in Anterior leads Confirmed by CHRISTINE BRANDON DO ([id number]) on 01/02/2021 1:49:40 PM Electronically Signed By: CHRISTINE BRANDON DO 01/02/21 1349 PATIENT NAME: JAREDCHANDANABETTYE Electrocardiogram DATE OF : 66 PHYSICIAN: CHRISTINE BRANDON DO REPORT #: [id number] REPORT IS CONFIDENTIAL AND NOT TO BE RELEASED WITHOUT AUTHORIZATION
== END 2021-01-02 05:09 | disposition home or self-care (01) ==
LOC: ED 00:31
DX: T78.40XA Allergy, unspecified, initial encounter (principal); R07.9 Chest pain, unspecified; Z88.2 Allergy status to sulfonamides; Z88.5 Allergy status to narcotic agent; Z91.018 Allergy to other foods; Z79.899 Other long term (current) drug therapy
CPT/HCPCS: 71045; 80053; 83690; 83735; 84484; 85025; 93005; 93010; 96374; 96375; 99285-25; J0171; J2930

== ENCOUNTER 2022-07-07 19:10 | Emergency (ER) | payer OTHER ==
[~2022-07-07] VITALS: Ht 160 cm; Wt 81.6 kg
[~2022-07-07 19:10] MED LIST changes: +PEPCID20 MG PO; +PREDNISONE50 MG PO
[2022-07-07] MEDS ORDERED: EPINEPHRIN0.3 MG/0.3 IM (19:27)
[2022-07-07] MEDS ORDERED: MELOXICAM5 MG PO (19:39)
== END 2022-07-07 19:49 | disposition home or self-care (01) ==
LOC: ED 19:10
DX: R68.84 Jaw pain (principal); G89.29 Other chronic pain; Z88.2 Allergy status to sulfonamides; Z88.5 Allergy status to narcotic agent; Z91.018 Allergy to other foods
CPT/HCPCS: 99283

== ENCOUNTER 2023-05-17 17:04 | Emergency (ER) | payer OTHER ==
[~2023-05-17] VITALS: Ht 160 cm; Wt 87.0 kg
--- OUTSIDE RECORDS SUMMARY | ~2023-05-17 | XMS | Continuity of Care Document ---
Demographics + + + | Address | [address] | | | [place] [address] | + + + | Preferred Language | Unknown | + + + | Marital Status | | + + + | Orthodox Affiliation | Unknown | + + + | Race | White | + + + | Ethnic Group | Not or | + + + Author + + + | Author | [facility] | + + + | Organization | [facility] | + + + | Address | [address] | | | [place] [address] | + + + | Phone | | + + + Care Team Providers + + + + | Care Logistics Planning Manager Name | Role | Phone | + + + + Unavailable | Unavailable | + + + + Unavailable | Unavailable | + + + + Allergies and Intolerances + + + + + + | date | description | facility | reaction | severity | + + + + + + | (no date) | Difficulty | [facility] | (no reaction) | (no severity) | | | breathing | [facility] | | | + + + + + + | (no date) | Codeine | [facility] | (no reaction) | (no severity) | | | | [facility] | | | + + + + + + | (no date) | Kiwi fruit | [facility] | (no reaction) | (no severity) | | | | [facility] | | | + + + + + + | (no date) | Codeine | [facility] | (no reaction) | (no severity) | | | | [facility] | | | + + + + + + Encounters No information. Functional Status No information. Immunizations No information. Medications + + + + | date | description | facility | + + + + | 2022-07-07 00:00 | ONDANSETRON HCL | [facility] | + + + + | 2017-10-02 00:00 | OXYCODONE HCL | [facility] | + + + + | 2022-07-07 00:00 | MONTELUKAST SODIUM | [facility] | + + + + | 2020-06-16 00:00 | DOXYCYCLINE HYCLATE | [facility] | + + + + | 2022-07-07 00:00 | Meloxicam, Submicronized | [facility] | + + + + | 2022-07-07 00:00 | PAROXETINE HCL | [facility] | + + + + | 2018-03-27 00:00 | ONDANSETRON HCL/PF | [facility] | + + + + | 2022-07-07 00:00 | EPINEPHRINE | [facility] | + + + + | 2022-07-07 00:00 | NAPROXEN | [facility] | + + + + | 2022-07-07 00:00 | ESTRADIOL | [facility] | + + + + | 2018-03-27 00:00 | LEVOFLOXACIN | [facility] | + + + + | 2014-03-16 00:00 | EPINEPHRINE | [facility] | + + + + | 2018-03-27 00:00 | HYDROCODONE | [facility] | | | BIT/ACETAMINOPHEN | | + + + + Problems + + + + | date | description | facility | + + + + | 2017-02-25 00:00 | Sprain of left ankle | [facility] | + + + + | 2017-03-13 00:00 | Hemorrhagic diarrhea | [facility] | + + + + | 2017-03-13 00:00 | Allergy to nuts | [facility] | + + + + | 2017-10-02 00:00 | Pain and swelling of left | [facility] | | | ankle | | + + + + | 2017-10-02 00:00 | Closed fracture of lateral | [facility] | | | malleolus of left fibula | | + + + + | 2017-10-02 00:00 | Fall due to slipping on | [facility] | | | ice or snow | | + + + + | 2019-02-18 00:00 | Allergic reaction | [facility] | + + + + | 2020-06-16 00:00 | Local infection of wound | [facility] | + + + + | 2021-01-02 00:00 | Chest pain | 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 Results/Labs No information. Social History No information. Vital Signs + + + +---------+ | date | measurement | value | units | + + + +---------+ | 2022-07-07 00:00 | BMI | 31.9 | kg/m2 | + + + +---------+ | 2022-07-07 00:00 | BP_diastolic | 76 | mmHg | + + + +---------+ | 2022-07-07 00:00 | BP_systolic | 128 | mmHg | + + + +---------+ | 2022-07-07 00:00 | heart_rate | 67 | /min | + + + +---------+ | 2022-07-07 00:00 | height_metric | 160.02 | cm | + + + +---------+ | 2022-07-07 00:00 | height_standard | 63 | in | + + + +---------+ | 2022-07-07 00:00 | o2_saturation | 97 | % | + + + +---------+ | 2022-07-07 00:00 | respiration_rate | 18 | /min | + + + +---------+ | 2022-07-07 00:00 | temperature_metric | 36.94 | C | | | | | | + + + +---------+ | 2022-07-07 00:00 | | 98.5 | F | | | temperature_standar | | | | | d | | | + + + +---------+ | 2022-07-07 00:00 | weight_metric | 81.6 | kg | + + + +---------+ | 2022-07-07 00:00 | weight_standard | 179.9 | lb | + + + +---------+"
--- OUTSIDE RECORDS SUMMARY | ~2023-05-17 | XMS | Continuity of Care Document ---
Demographics + + + | Address | [address] | | | [place] [address] | + + + | Preferred Language | Unknown | + + + | Marital Status | | + + + | Scientology Affiliation | Unknown | + + + | Race | White | + + + | Ethnic Group | Not or | + + + Author + + + | Author | [facility] | + + + | Organization | [facility] | + + + | Address | [address] | | | [place] [address] | + + + | Phone | | + + + Care Team Providers + + + + | Care Procurement Inspector Name | Role | Phone | + [...] HCL | [facility] | + + + + | 2017-10-02 00:00 | OXYCODONE HCL | [facility] | + + + + | 2022-07-07 00:00 | MONTELUKAST SODIUM | [facility] | + + + + | 2020-06-16 00:00 | DOXYCYCLINE HYCLATE | [facility] | + + + + | 2022-07-07 00:00 | Meloxicam, Submicronized | [facility] | + + + + | 2022-07-07 00:00 | PAROXETINE HCL | [facility] | + + + + | 2018-03-27 00:00 | ONDANSETRON HCL/PF | [facility] | + + + + | 2022-07-07 00:00 | EPINEPHRINE | [facility] | + + + + | 2022-07-07 00:00 | NAPROXEN | [facility] | + + + + | 2022-07-07 00:00 | ESTRADIOL | [facility] | + + + + | 2018-03-27 00:00 | LEVOFLOXACIN | [facility] | + + + + | 2014-03-16 00:00 | EPINEPHRINE | [facility] | + + + + | 2018-03-27 00:00 | HYDROCODONE | [facility] | | | BIT/ACETAMINOPHEN | | + + + + Problems + + + + | date | description | facility | + + + + | 2017-02-25 00:00 | Sprain of left ankle | [facility] | + + + + | 2017-03-13 00:00 | Hemorrhagic diarrhea | [facility] | + + + + | 2017-03-13 00:00 | Allergy to nuts | [facility] | + + + + | 2017-10-02 00:00 | Pain and swelling of left | [facility] | | | ankle | | + + + + | 2017-10-02 00:00 | Closed fracture of lateral | [facility] | | | malleolus of left fibula | | + + + + | 2017-10-02 00:00 | Fall due to slipping on | [facility] | | | ice or snow | | + + + + | 2019-02-18 00:00 | Allergic reaction | [facility] | + + + + | 2020-06-16 00:00 | Local infection of wound | [facility] | + + + + | 2021-01-02 00:00 | Chest pain | 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
[~2023-05-17 17:04] MED LIST changes: +EPINEPHRIN0.3 MG/0.3 IM; +MELOXICAM5 MG PO
[2023-05-17] MEDS ORDERED: PREDNISONE20 MG PO (17:56)
[2023-05-17 18:13] VITALS: BP 124/84
== END 2023-05-17 18:13 | disposition home or self-care (01) ==
LOC: ED 17:04
DX: T63.441A Toxic effect of venom of bees, accidental (unintentional), initial encounter (principal); X58.XXXA Exposure to other specified factors, initial encounter; Z88.2 Allergy status to sulfonamides; Z88.5 Allergy status to narcotic agent; Z91.018 Allergy to other foods; Z91.09 Other allergy status, other than to drugs and biological substances
CPT/HCPCS: 99282; J7512